=== PATIENT | female | born 1995 | race Caucasian/White ===

== ENCOUNTER 2017-12-29 08:28 | Emergency (ER) | payer MEDICAID, OTHER ==
[~2017-12-29] VITALS: Ht 162.6 cm; Wt 118.8 kg
[2017-12-29 08:31] VITALS: BP 113/76
--- NOTE | 2017-12-29 08:36 | NUR ---
PT AMBULATED TO BED3.
--- NOTE | 2017-12-29 08:59 | NUR ---
C/O SORE THROAT FOR 3 DAYS ASSOCIATED WITH FEVER CHILLS. TOOK DAYQUILL AND NIGHTQUIL W/O RELIEF. DENIES N/V HX: DENIES
[2017-12-29] MEDS ORDERED: CLINDAMYCIN 600 MG/4 ML VIAL IM ONE (09:10)
[2017-12-29] MEDS ORDERED: DEXAMETHASONE 10 MG/ML VIAL IM ONE (09:10)
--- NOTE | 2017-12-29 09:25 | NUR ---
Medicated as ordered, will monito for adverse side effects.
[2017-12-29 10:45] VITALS: BP 98/71
--- NOTE | 2017-12-29 10:46 | NUR ---
Patient discharged with v/s stable. Written and verbal after care instructions given and explained. Patient alert, oriented and verbalized understanding of instructions. Ambulatory with steady gait. All questions addressed prior to discharge. ID band removed. Patient advised to follow up with PMD. Rx of prednisone, clindamycin given. Patient educated on indication of medication including possible reaction and side effects. Opportunity to ask questions provided and answered.
== END 2017-12-29 10:46 | disposition home or self-care (01) ==
LOC: MED 08:28
DX: J03.90 Acute tonsillitis, unspecified (principal); I10 Essential (primary) hypertension; F17.200 Nicotine dependence, unspecified, uncomplicated
CPT/HCPCS: 96372; 99284; J1100; J3490

== ENCOUNTER 2019-05-25 03:15 | Emergency (ER) | payer OTHER ==
[~2019-05-25] VITALS: Ht 162.6 cm; Wt 109.3 kg
[2019-05-25 03:27] VITALS: BP 156/96
--- NOTE | 2019-05-25 03:27 | NUR ---
PT TAKEN TO BED 3
--- NOTE | 2019-05-25 03:29 | NUR ---
PATIENT ASSESSMENT COMPLETED AT THIS TIME FOR EPIGASTRIC PAIN. PATIENT SITTING UP IN BED. HOOKED UP TO MONITOR. VSS. BED LOW AND LOCKED WITH SIDE RAIL UP ON ONE SIDE.
--- NOTE | 2019-05-25 03:31 | NUR ---
EKG PERFORMED AT BEDSIDE WITH FAMILY MEMBER PRESENT
[2019-05-25 04:12] LABS: BASOPHILS % (AUTO) 0.5 % (0.0-2.0); EOSINOPHILS # (AUTO) 0.1 K/uL (0-0.4); EOSINOPHILS % (AUTO) 1.1 % (0.0-4.0); LYMPHOCYTES # (AUTO) 2.6 K/uL (2.5-16.5); LYMPHOCYTES % (AUTO) 33.6 % (20.5-51.1); MEAN CORPUSCULAR HEMOGLOBIN 28 pg (27-31); MEAN CORPUSCULAR HGB CONC 33 g/dL (33-37); MEAN CORPUSCULAR VOLUME 82.8 fL (80-94); MONOCYTES # (AUTO) 0.7 K/uL (0.8-1.0); MONOCYTES % (AUTO) 8.4 % (1.7-9.3); NEUTROPHILS # (AUTO) 4.4 K/uL (1.8-7.7); NEUTROPHILS % (AUTO) 56.4 % (42.2-75.2); PLATELET COUNT (AUTO) 267 K/uL (140-450); RED BLOOD CELL COUNT(AUTO) 5.07 MIL/uL (4.20-5.40); RED CELL DISTRIBUTION WIDTH 14.6 % (11.6-13.7); WHITE BLOOD COUNT (AUTO) 7.8 K/uL (4.8-10.8)
--- NOTE | 2019-05-25 04:12 | NUR ---
Ultrasound at bedside.
[2019-05-25 04:36] LABS: ANION GAP 12.3 (8-16); CARBON DIOXIDE 28.5 mmol/L (21-32); CREATININE 0.8 mg/dL (0.6-1.3); POTASSIUM 3.8 mmol/L (3.5-5.1); TOTAL BILIRUBIN 0.3 mg/dL (0.0-1.0)
[2019-05-25 04:37] LABS: ALBUMIN 3.3 g/dL (3.4-5.0)
[2019-05-25 04:46] VITALS: BP 136/78
== END 2019-05-25 04:47 | disposition home or self-care (01) ==
LOC: MED 03:15
DX: K80.20 Calculus of gallbladder without cholecystitis without obstruction (principal)
CPT/HCPCS: 36415; 76705; 80053; 83690; 85025; 93005; 99284; Q0092

== ENCOUNTER 2021-05-04 08:04 | Emergency (ER) | payer OTHER ==
[~2021-05-04] VITALS: Ht 162.6 cm; Wt 122.5 kg
[2021-05-04 08:13] VITALS: BP 141/76
--- NOTE | 2021-05-04 08:19 | NUR ---
PATIENT AMBULATED TO BED 12.
--- NOTE | 2021-05-04 08:28 | NUR ---
25 Y FEMALE WITH C/O URINARY BURNING, 10/10 LOWER ABD PAIN, HESISTANCY, LOWER BACK PAIN, AND INCREASED URINATION. PT TOOK IBUPROFEN 800 MG 1 HOUR AGO TO HELP WITH PAIN. PT STATED PAIN WAS 10/10 BEFORE TAKING IBUPROFEN. PMH: VAN BEAN
--- NOTE | 2021-05-04 08:57 | NUR ---
URINE WALKED OVER TO LAB
--- NOTE | 2021-05-04 09:28 | NUR ---
UA WALKED OVER TO LAB
[2021-05-04 09:39] LABS: APPEARANCE,URINE CLEAR (CLEAR); BILIRUBIN,URINE NEGATIVE (NEGATIVE); BLOOD, URINE 2+ (NEGATIVE); COLOR,URINE YELLOW (YELLOW); NITRITE, URINE NEGATIVE (NEGATIVE); UGLUCOSE NEGATIVE (NEGATIVE)
[2021-05-04 09:52] LABS: LEUKOCYTE ESTERASE ,URINE 1+ (NEGATIVE)
[2021-05-04 09:55] LABS: RBC,URINE 11-20 (MOD) /HPF (0-5)
[2021-05-04] MEDS ORDERED: PYR100 PO (10:06)
[2021-05-04] MEDS ORDERED: CEPH-588 PO (10:06)
[2021-05-04] MEDS: cephALEXin 500 MG CAP PO ONE (10:14)
--- NOTE | 2021-05-04 10:20 | NUR ---
Patient discharged with v/s stable. Written and verbal after care instructions given and explained. Patient alert, oriented and verbalized understanding of instructions. Ambulatory with steady gait. All questions addressed prior to discharge. ID band removed. Patient advised to follow up with PMD. Rx of KEFLEX AND PYRIDIUM given. Patient educated on indication of medication including possible reaction and side effects. Opportunity to ask questions provided and answered.
[2021-05-04 10:22] VITALS: BP 144/70
== END 2021-05-04 10:20 | disposition home or self-care (01) ==
LOC: MED 08:04
DX: N39.0 Urinary tract infection, site not specified (principal); Z79.2 Long term (current) use of antibiotics; Z79.899 Other long term (current) drug therapy
CPT/HCPCS: 81001; 81025; 87086; 99283

== ENCOUNTER 2023-05-09 13:42 | Emergency (ER) | payer OTHER ==
[~2023-05-09] VITALS: Ht 162.6 cm; Wt 100.2 kg
[~2023-05-09 13:42] MED LIST: CEPH-588 PO; PYR100 PO
[2023-05-09 14:02] VITALS: BP 108/67; PULSE 109; RESP 20; TEMP 99.4; O2SAT 98
[2023-05-09] MEDS ORDERED: IBUP-2213 PO (15:42)
[2023-05-09 16:00] VITALS: BP 108/67; PULSE 109; RESP 20; TEMP 99.4; O2SAT 98
== END 2023-05-09 16:06 | disposition home or self-care (01) ==
LOC: MED 13:42
DX: R07.89 Other chest pain (principal); R42 Dizziness and giddiness; E11.9 Type 2 diabetes mellitus without complications; Z98.890 Other specified postprocedural states; Z79.899 Other long term (current) drug therapy; Z79.2 Long term (current) use of antibiotics
CPT/HCPCS: 93005; 99283

== ENCOUNTER 2023-12-31 20:10 | Emergency (ER) | payer OTHER ==
[~2023-12-31] VITALS: Ht 162.6 cm; Wt 99.1 kg
[~2023-12-31 20:10] MED LIST changes: +IBUP-2213 PO
[2023-12-31 20:16] VITALS: BP 126/75; PULSE 74; RESP 14; TEMP 97.6; O2SAT 99
[2023-12-31 20:56] LABS: APPEARANCE,URINE CLEAR (CLEAR); BILIRUBIN,URINE NEGATIVE (NEGATIVE); BLOOD, URINE 1+ (NEGATIVE); COLOR,URINE YELLOW (YELLOW); LEUKOCYTE ESTERASE ,URINE NEGATIVE (NEGATIVE); NITRITE, URINE NEGATIVE (NEGATIVE); PROTEIN,URINE NEGATIVE (NEGATIVE); UGLUCOSE NEGATIVE (NEGATIVE); UROBILINOGEN,URINE 0.2 EU/dL (0.2 - 1)
[2023-12-31 21:01] LABS: BACTERIA,URINE 10-30 (MOD) /HPF (None Seen); SQUAMOUS EPITHELIAL CELL,UR 0-3 (FEW) /LPF (0-3 (FEW)); WBC,URINE 0-5 /HPF (0-5)
[2023-12-31] MEDS ORDERED: CYCL-711 PO (21:47)
== END 2023-12-31 21:32 | disposition home or self-care (01) ==
LOC: MED 20:10
DX: M54.50 Low back pain, unspecified (principal); R20.0 Anesthesia of skin; Z79.1 Long term (current) use of non-steroidal anti-inflammatories (NSAID); Z79.2 Long term (current) use of antibiotics; Z79.899 Other long term (current) drug therapy
CPT/HCPCS: 72100; 81001; 81025; 87086; 99284

== ENCOUNTER 2024-02-27 01:13 | Emergency (ER) | payer OTHER ==
[~2024-02-27] VITALS: Ht 162.6 cm; Wt 99.8 kg
[~2024-02-27 01:13] MED LIST changes: +CYCL-711 PO
[2024-02-27 01:18] VITALS: BP 103/69; PULSE 72; RESP 16; TEMP 97.4; O2SAT 99
[2024-02-27 01:42] LABS: BASOPHILS # (AUTO) 0.1 K/uL (0.00-0.22); BASOPHILS % (AUTO) 0.6 % (0.0-2.0); EOSINOPHILS # (AUTO) 0.1 K/uL (0-0.4); EOSINOPHILS % (AUTO) 0.4 % (0.0-4.0); HEMATOCRIT 36.3 % (36-48); HEMOGLOBIN 12.7 g/dL (12.0-16.0); LYMPHOCYTES # (AUTO) 3.6 K/uL (2.5-16.5); LYMPHOCYTES % (AUTO) 30.5 % (20.5-51.1); MEAN CORPUSCULAR HEMOGLOBIN 29 pg (27-31); MEAN CORPUSCULAR HGB CONC 35 g/dL (33-37); MEAN CORPUSCULAR VOLUME 83.1 fL (80-94); MONOCYTES # (AUTO) 0.7 K/uL (0.8-1.0); MONOCYTES % (AUTO) 5.5 % (1.7-9.3); NEUTROPHILS # (AUTO) 7.5 K/uL (1.8-7.7); PLATELET COUNT (AUTO) 277 K/uL (140-450); RED BLOOD CELL COUNT(AUTO) 4.36 MIL/uL (4.20-5.40); RED CELL DISTRIBUTION WIDTH 13.6 % (11.6-13.7); WHITE BLOOD COUNT (AUTO) 11.8 K/uL (4.8-10.8)
[2024-02-27 02:27] LABS: BILIRUBIN,URINE NEGATIVE (NEGATIVE); BLOOD, URINE 3+ (NEGATIVE); COLOR,URINE YELLOW (YELLOW); LEUKOCYTE ESTERASE ,URINE NEGATIVE (NEGATIVE); NITRITE, URINE NEGATIVE (NEGATIVE); PROTEIN,URINE NEGATIVE (NEGATIVE); UGLUCOSE NEGATIVE (NEGATIVE); UROBILINOGEN,URINE 0.2 EU/dL (0.2 - 1)
[2024-02-27 02:32] LABS: APPEARANCE,URINE SLIGHTLY HAZY (CLEAR)
[2024-02-27 05:35] VITALS: BP 103/69; PULSE 72; RESP 16; TEMP 97.4; O2SAT 99
== END 2024-02-27 05:35 | disposition home or self-care (01) ==
LOC: MED 01:13
DX: O20.0 Threatened abortion (principal); Z3A.01 Less than 8 weeks gestation of pregnancy; Z79.899 Other long term (current) drug therapy
CPT/HCPCS: 36415; 76817; 81003; 81025; 84702; 85025; 86900; 86901; 99284